=== PATIENT | female | born 1995 | race Caucasian/White ===

== ENCOUNTER → 2016-09-17 | Outpatient (CLI) | payer OTHER, BC | LOC: M LAB 11:44 | PROVIDERS: ATTEND Nurse Practitioner Family | DX: Z32.01 Encounter for pregnancy test, result positive (principal) ==

== ENCOUNTER 2017-01-11 00:37 | Emergency (ER) | payer OTHER, BC ==
[~2017-01-11] VITALS: Ht 177.8 cm; Wt 97.5 kg
[2017-01-11] MEDS ORDERED: diphenhydrAMINE INJ 50MG/ML VIAL (J1200) IV STA (03:03)
[2017-01-11] MEDS ORDERED: HALOPERIDOL 5 MG/ML VIAL (J1630) IV STA (03:03)
[2017-01-11] MEDS ORDERED: NS 500 ML IV ONE (03:15)
--- NOTE | 2017-01-11 03:30 | REPUSA ---
CLINICAL HISTORY: Headaches. TECHNIQUE: Multiple axial brain CT scan sections were obtained from base to vertex without contrast a dministration. COMMENTS: The study shows normal configuration of sella turcica. There are no intra or extra-axial collections. There is no mass effect or midline shift. There is no evidence of hematoma formation. No hydrocephal us is present. No abnormal calcifications are noted. No significant abnormalities are seen either in the posterior fossa or supratentorial compartment. The sinuses and mastoid air cells are patent. IMPRESSION: No evidence of acute intracranial pathology. Thank you for your kind referral of this patient.
[2017-01-11 03:49] LABS: MEAN CORPUSCULAR HEMOGLOBIN 21.2 pg (27.0-33.0); MEAN CORPUSCULAR HGB CONC 29.9 g/dl (32.0-36.5); MEAN CORPUSCULAR VOLUME 70.8 fl (80.0-96.0); PLATELET COUNT, AUTOMATED 317 k/mm3 (150-450); RED CELL DISTRIBUTION WIDTH 15.9 % (11.5-14.5); WHITE BLOOD COUNT 10.9 K/mm3 (4.0-10.0)
[2017-01-11 03:51] LABS: INR 0.96
[2017-01-11 04:01] LABS: CONTROL LINE HCG INT CTR LINE PRESENT
[2017-01-11 04:02] LABS: ANION GAP 7 MEQ/L (8-16); BLOOD UREA NITROGEN 9 MG/DL (7-18); CALCIUM LEVEL 8.2 MG/DL (8.5-10.1); CARBON DIOXIDE LEVEL 26 MEQ/L (21-32); CHLORIDE LEVEL 109 MEQ/L (98-107); CREATININE FOR GFR 0.68 MG/DL (0.55-1.02); GLOMERULAR FILTRATION RATE > 60.0 (>60); GLUCOSE, FASTING 80 MG/DL (70-105); POTASSIUM SERUM 3.9 MEQ/L (3.5-5.1); SODIUM LEVEL 142 MEQ/L (136-145)
[2017-01-11 04:32] LABS: ANISOCYTOSIS 2+; HYPOCHROMASIA 2+
[2017-01-11 04:33] LABS: MICROCYTOSIS 2+; POIKILOCYTOSIS 1+
[2017-01-11] MEDS ORDERED: ISOVUE-370 76% 100ML VIAL (Q9967) As Ordered ONE (04:48)
[2017-01-11 05:04] VITALS: BP 128/63
--- NOTE | 2017-01-11 05:20 | REPUSA ---
CLINICAL HISTORY: Pain, exclude PE. TECHNIQUE: Multiple incremental axial, coronal and oblique images are obtained from the thoracic inle t to the upper abdomen. Intravenous contrast material was administered as per pulmonary embolism prot ocol. COMMENTS: There is excellent opacification of pulmonary arterial system without evidence for pulmonary embolism . Aorta is of normal caliber without evidence for dissection or aneurysm. There is no evidence of pleural or parenchymal mass. There are no pleural effusions. There is no evid ence of hilar or mediastinal lymphadenopathy. The heart and great vessels are within normal limits. Images of the upper abdomen demonstrate no evidence of adrenal mass. The bony structures are free of lytic or blastic lesions. IMPRESSION: No evidence for pulmonary embolism. Thank you for your kind referral of this patient.
[2017-01-11] MEDS ORDERED: MECL-68 PO (05:26)
--- NOTE | 2017-01-11 07:34 | ECGEPIP ---
Stationary ECG Study [facility] - ED Test Date: 2017-01-11 Pat Name: SANDOVAL JAIMES Department: Room: - Gender: F Curtain Drier: christopher : 1995 Requested By: YOLIE MAHARAJ Order Number: [id number] Reading MD: Laura Foster Measurements Intervals [place] Rate: 62 P: 66 [place]: 205 QRS: 38 QRSD: 101 T: 38 QT: 401 QTc: 407 Interpretive Statements SINUS RHYTHM POSSIBLE LEFT ATRIAL ENLARGEMENT IRBBB DECREASED RATE 11/01/14 Electronically Signed On 01-11-2017 7:34:04 EDT by Laura Foster
== END 2017-01-11 05:43 | disposition home or self-care (01) ==
LOC: M ED 02:13
DX: H83.09 Labyrinthitis, unspecified ear (principal); F17.210 Nicotine dependence, cigarettes, uncomplicated
CPT/HCPCS: 36415; 70450; 71275; 80048; 84703; 85025; 85610; 85730; 93005; 96361; 96374; 96375; 99284; J1200; J1630; Q9967

== ENCOUNTER → 2017-02-14 | Outpatient (CLI) | payer OTHER, BC ==
[~2017-02-14] MED LIST: MECL-68 PO
--- NOTE | 2017-02-14 14:22 | REP ---
Cervical spine 10 views: There are no comparisons. Vertebral body heights, interspacing alignment are normal. There is no listhesis on flexion or extension. The prevertebral soft tissues are normal. The facets are normally aligned. The odontoid view is unremarkable. There is no bony foraminal encroachment. Impression: Negative plain film study of the cervical spine. Signed by Tom Robertson MD 02/14/2017 02:13 P
== END ==
LOC: M RAD 12:41
PROVIDERS: ATTEND Physician Assistant
DX: M54.2 Cervicalgia (principal)

== ENCOUNTER → 2017-05-30 | Outpatient (CLI) | payer OTHER, BC ==
--- NOTE | 2017-05-30 16:55 | REP ---
FIRST TRIMESTER ULTRASOUND: Real-time sonographic evaluation of the pelvis performed utilizing transabdominal and endovaginal technique. Uterus measures 9.6 x 4.2 x 5.2 cm. No gestational sac is seen in the endometrial canal. Endometrial thickness is approximately 5 mm. The right ovary measures 2.5 x 4.0 x 1.7 cm. Left ovary measures 3.6 x 3.0 x 3.0 cm. Dominant follicle in the left ovary measures 2.1 x 3.1 x 1.5 cm. There is no evidence of ovarian torsion with blood flow seen in each ovary with duplex Doppler evaluation, RI right ovary 0.74 and left ovary 0.55. There is no adnexal mass or free fluid. IMPRESSION: No intrauterine identified. Small cystic structure in the left ovary may represent a dominant follicle or corpus luteum. Findings could represent a very early intrauterine or missed (AB), but ectopic is not excluded. Recommend correlation with serial quantitative beta hCG values. Signed by Tom Delgadillo MD 06/02/2017 09:55 A
== END ==
LOC: M RAD 14:13
PROVIDERS: ATTEND Registered Nurse
DX: R93.8 Abnormal findings on diagnostic imaging of other specified body structures (principal)

== ENCOUNTER → 2017-06-03 | Outpatient (CLI) | payer OTHER, BC | LOC: M LAB 16:46 | PROVIDERS: ATTEND Nurse Practitioner Women's Health | DX: Z34.80 Encounter for supervision of other normal pregnancy, unspecified trimester (principal) ==

== ENCOUNTER → 2017-11-26 | Outpatient (CLI) | payer BC, OTHER ==
[2017-11-26 20:41] LABS: ALBUMIN 4.5 GM/DL (3.2-5.2); ALBUMIN/GLOBULIN RATIO 1.29 (1.00-1.93); ALKALINE PHOSPHATASE 70 U/L (45-117); ALT/SGPT 18 U/L (12-78); ANION GAP 7 MEQ/L (8-16); AST/SGOT 10 U/L (7-37); BILIRUBIN,TOTAL 0.6 MG/DL (0.2-1.0); BLOOD UREA NITROGEN 12 MG/DL (7-18); CALCIUM LEVEL 8.9 MG/DL (8.5-10.1); CARBON DIOXIDE LEVEL 27 MEQ/L (21-32); CHLORIDE LEVEL 107 MEQ/L (98-107); CREATININE FOR GFR 0.75 MG/DL (0.55-1.30); GLOMERULAR FILTRATION RATE > 60.0 (>60); GLUCOSE, FASTING 77 MG/DL (70-100); SODIUM LEVEL 141 MEQ/L (136-145); THYROID STIMULATING HORMONE 0.791 uIU/ML (0.358-3.740)
== END ==
LOC: M LAB 19:28
DX: R53.83 Other fatigue (principal); R42 Dizziness and giddiness
CPT/HCPCS: 84443

== ENCOUNTER → 2018-06-22 | Outpatient (CLI) | payer BC | LOC: M RAD 09:59 | DX: N94.10 Unspecified dyspareunia (principal) | CPT/HCPCS: 76856 ==

== ENCOUNTER → 2019-04-07 | Outpatient (REF) | payer OTHER, BC ==
[2019-04-07 17:51] LABS: APPEARANCE, URINE HAZY (CLEAR); BACTERIA, URINE AUTO NEGATIVE (NEGATIVE); BILIRUBIN, URINE AUTO NEGATIVE (NEGATIVE); BLOOD, URINE BLOOD 2+ (NEGATIVE); COLOR, URINE STRAW (YELLOW); GLUCOSE, URINE (UA) AUTO NEGATIVE (NEGATIVE); KETONE, URINE AUTO NEGATIVE (NEGATIVE); LEUKOCYTE ESTERASE, URINE AUTO 3+ (NEGATIVE); NITRITE, URINE AUTO NEGATIVE (NEGATIVE); PROTEIN, URINE AUTO NEGATIVE (NEGATIVE); RBC, URINE AUTO 10 /HPF (0-3); SPECIFIC GRAVITY URINE AUTO 1.006 (1.002-1.035); SQUAMOUS EPITHELIAL CELL UR AU 4 /HPF (0-6); UROBILINOGEN, URINE AUTO 0.2 mg/dL (0.0-2.0); WBC, URINE AUTO TNTC /HPF (0-3)
== END ==
LOC: M LAB REF 17:13
PROVIDERS: ATTEND Physician Assistant Medical
DX: N39.0 Urinary tract infection, site not specified (principal)

== ENCOUNTER → 2019-04-30 | Outpatient (REF) | payer BC ==
[2019-04-30 13:34] LABS: APPEARANCE, URINE CLEAR (CLEAR); BACTERIA, URINE AUTO NEGATIVE (NEGATIVE); BILIRUBIN, URINE AUTO NEGATIVE (NEGATIVE); BLOOD, URINE BLOOD NEGATIVE (NEGATIVE); COLOR, URINE COLORLESS (YELLOW); GLUCOSE, URINE (UA) AUTO NEGATIVE (NEGATIVE); KETONE, URINE AUTO NEGATIVE (NEGATIVE); LEUKOCYTE ESTERASE, URINE AUTO NEGATIVE (NEGATIVE); NITRITE, URINE AUTO NEGATIVE (NEGATIVE); PROTEIN, URINE AUTO NEGATIVE (NEGATIVE); RBC, URINE AUTO 0 /HPF (0-3); SPECIFIC GRAVITY URINE AUTO 1.001 (1.002-1.035); SQUAMOUS EPITHELIAL CELL UR AU 0 /HPF (0-6); UROBILINOGEN, URINE AUTO 0.2 mg/dL (0.0-2.0); WBC, URINE AUTO 0 /HPF (0-3)
== END ==
LOC: M LAB REF 13:15
DX: R30.0 Dysuria (principal)

== ENCOUNTER → 2019-05-11 | Outpatient (REF) | payer BC, OTHER ==
[2019-05-11 15:58] LABS: URINE PREG TEST NEGATIVE (NEGATIVE)
[2019-05-11 21:14] LABS: CHLAMYDIA DNA AMPLIFICATION NEGATIVE (NEGATIVE); GC DNA AMPLIFICATION NEGATIVE (NEGATIVE)
== END ==
LOC: M SFHCPLAZ 15:36
PROVIDERS: ATTEND Family Medicine
DX: R30.0 Dysuria (principal)

== ENCOUNTER → 2019-06-15 | Outpatient (REF) | payer BC, OTHER ==
[2019-06-15 14:34] LABS: APPEARANCE, URINE HAZY (CLEAR); BACTERIA, URINE AUTO NEGATIVE (NEGATIVE); BILIRUBIN, URINE AUTO NEGATIVE (NEGATIVE); BLOOD, URINE BLOOD 1+ (NEGATIVE); CALCIUM OXALATE CRYSTALS MODERATE; COLOR, URINE YELLOW (YELLOW); GLUCOSE, URINE (UA) AUTO NEGATIVE (NEGATIVE); KETONE, URINE AUTO NEGATIVE (NEGATIVE); LEUKOCYTE ESTERASE, URINE AUTO NEGATIVE (NEGATIVE); MUCUS, URINE SMALL (NEGATIVE); NITRITE, URINE AUTO NEGATIVE (NEGATIVE); PROTEIN, URINE AUTO NEGATIVE (NEGATIVE); RBC, URINE AUTO 1 /HPF (0-3); SPECIFIC GRAVITY URINE AUTO 1.023 (1.002-1.035); SQUAMOUS EPITHELIAL CELL UR AU 3 /HPF (0-6); UROBILINOGEN, URINE AUTO 0.2 mg/dL (0.0-2.0); WBC, URINE AUTO 1 /HPF (0-3)
== END ==
LOC: M SMT 13:42
PROVIDERS: ATTEND Specialist
DX: Z28.21 Immunization not carried out because of patient refusal (principal)

== ENCOUNTER → 2019-07-06 | Outpatient (REF) | payer BC, OTHER | LOC: M SMT 13:49 | PROVIDERS: ATTEND Nurse Practitioner Women's Health | DX: N76.0 Acute vaginitis (principal) ==

== ENCOUNTER → 2019-08-09 | Outpatient (CLI) | payer BC, OTHER ==
--- NOTE | 2019-08-09 07:55 | REP ---
Clinical: Cystitis. Technique: Real time bill scale ultrasound examination using curved array transducer. Findings: Bilateral kidneys are normal in contour, size, echogenicity, and reniform shape without hydronephrosis, nephrolithiasis, cystic or renal mass lesion. Bladder is under distended and grossly normal in appearance. Right kidney measures 12.1 x 5.5 x 5.1 cm. Left kidney measures 12.5 x 5.8 x 5.1 cm. Impression: Normal renal ultrasound. Incomplete evaluation of the bladder due to under distension. Electronically Signed by Otf Barney MD 08/09/2019 07:46 A
== END ==
LOC: M RAD 07:05
PROVIDERS: ATTEND Family Medicine
DX: N30.90 Cystitis, unspecified without hematuria (principal)

== ENCOUNTER → 2020-04-03 | Outpatient (CLI) | payer OTHER ==
[~2020-04-03] MED LIST changes: -MECL-68 PO; +MECL1TAB31 PO
== END ==
LOC: M LABSMTC 12:48
PROVIDERS: ATTEND Pediatrics
DX: Z11.59 Encounter for screening for other viral diseases (principal)

== ENCOUNTER → 2020-05-19 | Outpatient (REF) | payer OTHER | LOC: M LAB REF 16:08 | PROVIDERS: ATTEND Advanced Practice Midwife | DX: O02.1 Missed abortion (principal) | CPT/HCPCS: 86850; 86901; J2790 ==

== ENCOUNTER → 2020-06-07 | Outpatient (REF) | payer OTHER | LOC: M LAB REF 11:16 | PROVIDERS: ATTEND Advanced Practice Midwife | DX: O03.4 Incomplete spontaneous abortion without complication (principal) ==

== ENCOUNTER → 2020-06-21 | Outpatient (REF) | payer OTHER | LOC: M LAB REF 11:36 | PROVIDERS: ATTEND Obstetrics & Gynecology | DX: O02.1 Missed abortion (principal) ==

== ENCOUNTER → 2020-06-28 | Outpatient (REF) | payer OTHER | LOC: M LAB REF 12:29 | PROVIDERS: ATTEND Obstetrics & Gynecology | DX: O02.1 Missed abortion (principal); Z3A.00 Weeks of gestation of pregnancy not specified ==

== ENCOUNTER → 2020-07-12 | Outpatient (REF) | payer OTHER | LOC: M LAB REF 12:31 | PROVIDERS: ATTEND Obstetrics & Gynecology | DX: O02.1 Missed abortion (principal) ==

== ENCOUNTER → 2020-12-08 | Outpatient (REF) | LOC: M LABSMTC 11:04 | PROVIDERS: ATTEND Pediatrics | DX: Z20.822 Contact with and (suspected) exposure to COVID-19 (principal) ==

== ENCOUNTER → 2021-05-29 | Outpatient (REF) | payer OTHER ==
[2021-05-29 13:06] LABS: BASO % 0.5 % (0.0-1.0); EOS # 0.1 10^3/uL (0.0-0.5); EOS % 0.8 % (0.0-3.0); HEMATOCRIT 38.3 % (36.0-47.0); HEMOGLOBIN 12.3 g/dl (12.0-15.5); LYMPH % 29.8 % (24.0-44.0); MEAN CORPUSCULAR HEMOGLOBIN 27.2 pg (27.0-33.0); MEAN CORPUSCULAR HGB CONC 32.1 g/dl (32.0-36.5); MEAN CORPUSCULAR VOLUME 84.7 fl (80.0-96.0); MONO # 0.4 10^3/uL (0.0-0.8); MONO % 6.1 % (2.0-8.0); NEUTROPHILS # 4.1 10^3/uL (1.5-8.5); NEUTROPHILS % 62.5 % (36.0-66.0); PLATELET COUNT, AUTOMATED 259 10^3/uL (150-450); RED BLOOD COUNT 4.52 10^6/uL (4.00-5.40); WHITE BLOOD COUNT 6.6 10^3/uL (4.0-10.0)
[2021-05-29 13:54] LABS: THYROID STIMULATING HORMONE 1.05 uIU/ML (0.358-3.740); THYROXINE (T4) 10.8 UG/DL (4.5-12.0)
== END ==
LOC: M LAB REF 12:07
PROVIDERS: ATTEND Advanced Practice Midwife
DX: N92.1 Excessive and frequent menstruation with irregular cycle (principal)

== ENCOUNTER → 2022-06-13 | Outpatient (CLI) | payer OTHER, SELFPAY | LOC: M WHC 13:18 | PROVIDERS: ATTEND Obstetrics & Gynecology | DX: N85.4 Malposition of uterus (principal); N92.1 Excessive and frequent menstruation with irregular cycle ==

== ENCOUNTER → 2025-08-08 | Outpatient (REF) ==
[~2025-08-08] MED LIST changes: +MECL-209 PO; -MECL1TAB31 PO
== END ==
LOC: M EMP 12:13
PROVIDERS: ATTEND Family Medicine
DX: Z11.52 Encounter for screening for COVID-19 (principal)